=== PATIENT | female | born 1995 | race Caucasian/White ===

== ENCOUNTER 2018-07-20 16:32 | Emergency (ER) | payer BC ==
[2018-07-20 17:13] VITALS: BP 137/79
--- NOTE | 2018-07-20 17:24 | UC ---
UC General HPI - HPI Summary HPI Summary: about 1.5 hours ago, pt fell and injured her L hand/wrist area. +swell. - History of Current Complaint Chief Complaint: UCTrauma Stated Complaint: LEFT WRIST INJ Time Seen by Provider: 07/20/18 17:18 Hx Obtained From: Patient Hx Last Menstrual Period: 07/16/18 Onset/Duration: Sudden Onset Timing: Constant Pain Intensity: 8 Aggravating: movement Associated Signs & Symptoms: Positive: Edema. Negative: Fever, Weakness - Allergy/Home Medications Allergies/Adverse Reactions: Allergies Allergy/AdvReac Type Severity Reaction Status Date / Time amoxicillin Allergy Intermediate rash, GI Verified 07/20/18 17:14 upset esomeprazole [From Nexium] Allergy Intermediate Rash Verified 07/20/18 17:14 PMH/Surg Hx/FS Hx/Imm Hx Previously Healthy: Yes - Surgical History Surgical History: Yes Surgery Procedure, Year, and Place: arthroascopic hip surgery - Family History Known Family History: Negative: Diabetes - Social History Occupation: Student Alcohol Use: Weekly Substance Use Type: None Smoking Status (MU): Never Smoked Tobacco - Immunization History Most Recent Influenza Vaccination: not this season Vaccination Up to Date: Yes Review of Systems All Other Systems Reviewed And Are Negative: Yes Constitutional: Positive: Negative Skin: Positive: Negative Eyes: Positive: Negative ENT: Positive: Negative Respiratory: Positive: Negative Cardiovascular: Positive: Negative Gastrointestinal: Positive: Negative Genitourinary: Positive: Negative Motor: Positive: Negative Neurovascular: Positive: Negative Neurological: Negative: Weakness, Paresthesia, Numbness Psychological: Positive: Negative Physical Exam Triage Information Reviewed: Yes Appearance: Well-Appearing Vital Signs: Initial Vital Signs Temp 98.2 F 07/20/18 17:09 Pulse 82 07/20/18 17:09 Resp 18 07/20/18 17:09 BP 137/79 07/20/18 17:09 Pulse Ox 100 07/20/18 17:09 Vital Signs Reviewed: Yes Eyes: Positive: Conjunctiva Clear ENT: Positive: Normal ENT inspection Neck: Positive: Supple Respiratory: Positive: Lungs clear, Normal breath sounds Cardiovascular: Positive: RRR, No Murmur Abdomen Description: Positive: Nontender Bowel Sounds: Positive: Present Musculoskeletal: Positive: Other: - LUE: shoulder and elbow non tender. L wrist with mild swelling, dorasl and snuff box tenderness. L hand has superficiail abrasion, tenderness and swelling over thenar eminence. fingers have full s/v/m function. Neurological: Positive: Alert Psychological: Positive: Age Appropriate Behavior Skin Exam: Normal Diagnostics - Radiology No standard instances Radiology Interpretation Completed By: Radiologist - NO FX ON WRIST/HAND. SEE FULL REPORT. Course/Dx - Diagnoses Provider Diagnosis: Sprain of left wrist, Contusion of left hand, Abrasion of left hand, Occult fracture of scaphoid of left wrist Discharge - Sign-Out/Discharge Documenting (check all that apply): Patient Departure All imaging exams completed and their final reports reviewed: Yes - Discharge Plan Condition: Stable Disposition: HOME Patient Education Materials: Abrasion (ED), Wrist Sprain (ED) Referrals: Bishop Hernandez MD [Medical Doctor] - As Soon As Possible Additional Instructions: KEEP SPLIN ON AT ALL TIMES UNTIL CLEARED BY ORTHOPEDICS - Billing Disposition and Condition Condition: STABLE Disposition: Home
== END 2018-07-20 17:59 | disposition home or self-care (01) ==
LOC: UCCORT 16:32
DX: S62.002A Unspecified fracture of navicular [scaphoid] bone of left wrist, initial encounter for closed fracture (principal); S63.502A Unspecified sprain of left wrist, initial encounter; S60.222A Contusion of left hand, initial encounter; S60.512A Abrasion of left hand, initial encounter; Z88.8 Allergy status to other drugs, medicaments and biological substances; Z88.0 Allergy status to penicillin; W19.XXXA Unspecified fall, initial encounter; Y92.9 Unspecified place or not applicable
CPT/HCPCS: 99212; G0463

== ENCOUNTER 2018-10-12 07:19 | Emergency (ER) | payer BC ==
--- OUTSIDE RECORDS SUMMARY | 2018-10-12 07:26 | XMS REPORT | Continuity of Care Document ---
:1995 External Reference #:[id number] Author Name Jean Cerda MD Address [address] [facility] [place] [address] Care Team Providers Name Role Phone Cynthia Brown MD Care Team Information Associate Curator Unavailable Cynthia Brown MD Primary Care Physician Unavailable Payers Date Identification Numbers Payment Provider Subscriber Policy Number: [id number] Maryus Ena Menchaca PayID: [id number] [address] [address] [place] [address] Advance Directives Description No Information Available Problems Active Problems Provider Date Immunization Cynthia Brown MD Onset: 08/30/2016 Acute sinusitis Cynthia Brown MD Onset: 08/30/2016 Peptic reflux disease Cynthia Brown MD Onset: 08/30/2016 Family History Date Family Member(s) Observation Comments Father No Current Problems Mother No Current Problems Social History Type Date Description Comments Sex Unknown Lives With Roommate CHIQUIS WENDELL KINSEY BURNETT Tobacco Use Start: Unknown Never Smoked Cigarettes ETOH Use Negative For Drinks Alcoholic Beverages Occasionally Tobacco Use Start: Unknown Patient denies history of smoking Tobacco Use Start: Unknown Parent(S) Smoke dad Smoking Status Reviewed: 10/09/18 Parent(S) Smoke dad Allergies, Adverse Reactions, Alerts Active Allergies Reaction Severity Comments Date Nexium Rash Mild 09/20/2016 Amoxicillin Nausea 10/09/2018 Inactive Allergies NKDA 08/30/2016 Medications Active Medications SIG Qnty Indications Ordering Provider Date Macrobid 1 cap by mouth 10caps R30.0 Jean Cerda MD 10/09/2018 100mg Capsules twice a day Apri 1 by mouth Unknown 0.15-30mg-mcg every day Tablets History Medications Amoxicillin 1 by mouth 20tabs J01.90 Cynthia Brown, 08/30/2016 - 875mg twice a day 09/20/2016 Tablets Immunizations CPT Code Status Date Vaccine Lot # [id number] Given 07/04/2017 Influenza Virus Vaccine, Quadrivalent, Slit Virus, [id number] Im Use 73296 Given 02/28/2017 Gardasil [id number] 77319 Given 08/30/2016 Gardasil [id number] 02194 Given 10/01/2014 Meningococcal Conjugate Vaccine Serogroups For Intramuscular Use 40486 Given 03/13/2008 Tdap injection 98179 Given 09/13/2001 Poliovirus Vaccine Subcutaneous Or Intramuscular 51521 Given 09/13/2001 MMR Vaccine, Live, For Subcutaneous Use 20628 Given 09/13/2001 DTaP Vaccine Younger Than 7 76620 Given 01/12/1998 Poliovirus Vaccine Subcutaneous Or Intramuscular 55359 Given 01/12/1998 DTaP Vaccine Younger Than 7 23136 Given 10/13/1997 MMR Vaccine, Live, For Subcutaneous Use 62100 Given 10/13/1997 Hib PRP-T Conjugate 4 Dose Schedule 46360 Given 07/21/1997 Varicella (Chicken Pox) Vaccine 64886 Given 04/21/1997 Hepatitis B Vaccine Pediatric/Adolescent 20580 Given 01/20/1997 DTaP Vaccine Younger Than 7 16863 Given 01/20/1997 Hib PRP-T Conjugate 4 Dose Schedule 08390 Given 1996 Poliovirus Vaccine Subcutaneous Or Intramuscular 44493 Given 1996 DTaP Vaccine Younger Than 7 81151 Given 1996 Hib PRP-T Conjugate 4 Dose Schedule 98456 Given 1996 Poliovirus Vaccine Subcutaneous Or Intramuscular 98445 Given 1996 DTaP Vaccine Younger Than 7 50577 Given 1996 Hib PRP-T Conjugate 4 Dose Schedule 68204 Given 1996 Hepatitis B Vaccine Pediatric/Adolescent 41948 Given 1996 Hepatitis B Vaccine Pediatric/Adolescent Vital Signs Date Vital Result Comment 10/09/2018 10:41am BP Systolic 106 mmHg BP Diastolic 72 mmHg Body Temperature 97.9 F Heart Rate 70 /min Respiratory Rate 18 /min Height 65 inches 5'5" Weight 169.00 lb BMI (Body Mass Index) 28.1 kg/m2 BSA (Body Surface Area) 1.84 m2 [place] body weight in kilograms 57 kg O2 % BldC Oximetry 99 % Ra 09/20/2016 1:35pm BP Systolic Sitting Right Arm 123 mmHg BP Diastolic Sitting Right Arm 78 mmHg Body Temperature 97.8 F Heart Rate 73 /min Height 65 inches 5'5" Weight 151.06 lb BMI (Body Mass Index) 25.1 kg/m2 BSA (Body Surface Area) 1.76 m2 O2 % BldC Oximetry 100 % 08/30/2016 10:58am BP Systolic Sitting Left Arm 130 mmHg BP Diastolic Sitting Left Arm 76 mmHg Body Temperature 98.0 F Heart Rate 76 /min Respiratory Rate 12 /min Height 65 inches 5'5" Weight 156.00 lb BMI (Body Mass Index) 26.0 kg/m2 BSA (Body Surface Area) 1.78 m2 [place] body weight in kilograms 57 kg Last Menstrual Period [id number] Results Test Date Facility Test Result H/L Range Note Urine Dipstick 10/09/2018 [facility] Color yellow Yellow Ua Clarity clear Clear Ua Leuko 2+ High Negative Ua Nitrite - Negative Ua Urobilinogen 0.2 0.2 - 1.0 E.U./dL Ua Protein 1+ High Negative Ua PH 6.0 Low 6.5-7.5 Ua Blood 2+ High Negative Ua Specific Bazine 1.030 1.010-1.030 Ua Ketones - Negative Ua Bilirubin - Negative Ua Glucose - Negative Aot Request 10/05/2018 [facility] Aot Request Test(s) added 1, 2 [address] [place] [address] [phone] Tests to be added: Serum hcg CBC W/Automated Diff 10/05/2018 [facility] White Blood 8.0 K/uL N 3.1-10.[address] [place] [address] [phone] Red Blood Count 4.60 M/uL N 3.90-5.40 Hemoglobin 12.9 gm/dL N 11.6-15.8 Hematocrit 38.4 % N 36.0-46.1 Mean Cell Volume 83.5 fl N 80.9-99.0 Mean Corpuscular HGB 28.0 pg N 25.9-32.7 Mean Corpuscular HGB Conc 33.6 g/dL N 30.8-34.3 Platelet Count 249 K/uL N 155-360 Red Cell Distri Width SD 41.5 fl N 36-47 Red Cell Distri Width %CV 13.7 % N 11.7-14.4 Mean Platelet Volume 10.5 fl N 8.9-12.4 Neut% 80.7 % High 40.4-72.8 Lymph % 10.7 % Low 20.0-42.0 Lyon % 6.5 % N 4.3-13.2 Eo% 1.5 % N 0.0-6.6 Bas% 0.3 % N 0.0-1.1 Immature Grans 0.3 % N 0.0-5.0 NRBC % 0.0 /100WBC < 10/ 100 WBC Neut# 6.42 K/uL N 1.8-7.0 Lymph # 0.85 K/uL Low 1.0-4.0 Lyon # 0.52 K/uL N 0.3-0.9 Eos # 0.12 K/uL N 0.0-0.5 Baso # 0.02 K/uL N 0.0-0.1 Immature Grans Absolute 0.02 K/uL NRBC # 0.00 K/uL Neutrophils/leuk 09/25/2016 N2N/CCD Import Neutrophils/leuk 68.7 High 28.0-68.0 NFr Bld Auto NFr Bld Auto Neutrophils # Bld 09/25/2016 N2N/CCD Import Neutrophils # Bld 7.53 High 1.8-7.0 Auto Auto Monocytes/leuk NFr 09/25/2016 N2N/CCD Import Monocytes/leuk NFr 10.4 4.3 -13.2 Bld Auto Bld Auto Monocytes # Bld 09/25/2016 N2N/CCD Import Monocytes # Bld 1.14 High 0.3- 0.9 Auto Auto MCV RBC Auto 09/25/2016 N2N/CCD Import MCV RBC Auto 81.4 80.9-99.0 MCHC RBC Auto-mCnc 09/25/2016 N2N/CCD Import MCHC RBC Auto-mCnc 33.1 30.8-34.3 MCH RBC Qn Auto 09/25/2016 N2N/CCD Import MCH RBC Qn Auto 26.9 25.9- 32.7 Lymphocytes/leuk 09/25/2016 N2N/CCD Import Lymphocytes/leuk 18.1 Low 20.0 -42.0 NFr Bld Auto NFr Bld Auto Lymphocytes # Bld 09/25/2016 N2N/CCD Import Lymphocytes # Bld 1.99 1.0- 4.0 Auto Auto Hgb Bld-mCnc 09/25/2016 N2N/CCD Import Hgb Bld-mCnc 13.0 11.6-15.8 PMV Bld Auto 09/25/2016 N2N/CCD Import PMV Bld Auto 10.9 8.9-12.4 Platelet # Bld Auto 09/25/2016 N2N/CCD Import Platelet # Bld 264 150- 400 Auto Potassium 09/25/2016 N2N/CCD Import Potassium 3.3 Low 3.5-5.1 SerPl-sCnc SerPl-sCnc Prot SerPl-mCnc 09/25/2016 N2N/CCD Import Prot SerPl-mCnc 7.8 6.4-8.2 RBC # Bld Auto 09/25/2016 N2N/CCD Import RBC # Bld Auto 4.83 3.90-5.40 RDW RBC Auto 09/25/2016 N2N/CCD Import RDW RBC Auto 41.5 3-47 RDW RBC Auto-Rto 09/25/2016 N2N/CCD Import RDW RBC Auto-Rto 14.2 11.7- 14.4 Sodium SerPl-sCnc 09/25/2016 N2N/CCD Import Sodium SerPl-sCnc 140 136- 145 Unloinc 09/25/2016 N2N/CCD Import Unloinc See Note 3 WBC # Bld Auto 09/25/2016 N2N/CCD Import WBC # Bld Auto 11.0 High 3.1- 10.7 Pertussis PCR 09/25/2016 [facility] Bordetella Negative Negative [address] Pertussis Dna [place], [place] [id number] [phone] Bordetella parapertussis Dna Negative Negative 5 Comprehensive Metabolic 09/25/2016 [facility] Glucose 96 mg/dL N 74-[address] [place] [address] [phone] BUN 6 mg/dL Low 7-18 Creatinine 0.9 mg/dL N 0.6-1.3 Glom Filtration Rate, Estimate >60 mL/min >60 If >60 mL/min >60 6 BUN/Creat 6.6 ratio Sodium 140 mmol/L N 136-145 Potassium 3.3 mmol/L Low 3.5-5.1 Chloride 106 mmol/L N 98-107 Carbon Dioxide 23 mmol/L N 21-32 Anion Gap 11 mEq/L N 8-16 Calcium 9.0 mg/dL N 8.5-10.1 Total Protein 7.8 g/dL N 6.4-8.2 Albumin 3.8 g/dL N 3.4-5.0 Globulin 4.0 g/dL N 1.9-4.3 Alb/Glob 1.0 ratio Bilirubin,Total 0.8 mg/dL N 0.2-1.0 Sgot/Ast 16 U/L N 15-37 SGPT/Alt 22 U/L N 12-78 Alkaline Phosphatase 61 U/L N 45-117 Laboratory 09/25/2016 [facility] HCG,Serum NEGATIVE (Negative) 7 test finding [address] (Qualitative) [place] [address] [phone] CBS 09/25/2016 [facility] White Blood 11.0 K/uL High 3.1-10.7 W/Automated [address] [place] [address] [phone] Red Blood Count 4.83 M/uL N 3.90-5.40 Hemoglobin 13.0 gm/dL N 11.6-15.8 Hematocrit 39.3 % N 36.0-46.1 Mean Cell Volume 81.4 fl N 80.9-99.0 Mean Corpuscular HGB 26.9 pg N 25.9-32.7 Mean Corpuscular HGB Conc 33.1 g/dL N 30.8-34.3 Platelet Count 264 K/uL N 150-400 Red Cell Distri Width SD 41.5 fl N 3-47 Red Cell Distri Width %CV 14.2 % N 11.7-14.4 Mean Platelet Volume 10.9 fL N 8.9-12.4 Neut% 68.7 % High 28.0-68.0 Lymph % 18.1 % Low 20.0-42.0 Lyon % 10.4 % N 4.3-13.2 Eo% 2.6 % N 0.0-6.6 Bas% 0.2 % N 0.0-1.1 Neut# 7.53 K/uL High 1.8-7.0 Lymph # 1.99 K/uL N 1.0-4.0 Lyon # 1.14 K/uL High 0.3-0.9 Eos # 0.29 K/uL N 0.0-0.5 Baso # 0.02 K/uL N 0.0-0.1 Slide Review 09/25/2016 [facility] Slide Review (SEE NOTE) [address] [place] [address] [phone] Alp SerPl-cCnc 09/25/2016 N2N/CCD Import Alp SerPl-cCnc 61 45-117 Alt SerPl-cCnc 09/25/2016 N2N/CCD Import Alt SerPl-cCnc 22 12-78 Ast SerPl-cCnc 09/25/2016 N2N/CCD Import Ast SerPl-cCnc 16 15-37 Albumin 09/25/2016 N2N/CCD Import Albumin 3.8 3.4-5. SerPl-mCnc SerPl-mCnc 0 Albumin/Glob 09/25/2016 N2N/CCD Import Albumin/Glob 1.0 SerPl SerPl Anion Gap 09/25/2016 N2N/CCD Import Anion Gap 11 8-16 SerPl-sCnc SerPl-sCnc BUN SerPl-mCnc 09/25/2016 N2N/CCD Import BUN SerPl-mCnc 6 Low 7-18 BUN/Creat SerPl 09/25/2016 N2N/CCD Import BUN/Creat SerPl 6.6 Basophils # Bld 09/25/2016 N2N/CCD Import Basophils # Bld 0.02 0.0-0. Auto Auto 1 Basophils/leuk 09/25/2016 N2N/CCD Import Basophils/leuk 0.2 0.0-1. NFr Bld Auto NFr Bld Auto 1 Bilirub 09/25/2016 N2N/CCD Import Bilirub 0.8 0.2-1. SerPl-mCnc SerPl-mCnc 0 Co2 SerPl-sCnc 09/25/2016 N2N/CCD Import Co2 SerPl-sCnc 23 21-32 Calcium 09/25/2016 N2N/CCD Import Calcium 9.0 8.5-10 SerPl-mCnc SerPl-mCnc .1 Chloride 09/25/2016 N2N/CCD Import Chloride 106 98-107 SerPl-sCnc SerPl-sCnc Creat SerPl-mCnc 09/25/2016 N2N/CCD Import Creat SerPl-mCnc 0.9 0.6-1. 3 Eosinophil # Bld 09/25/2016 N2N/CCD Import Eosinophil # Bld 0.29 0.0-0. Auto Auto 5 Eosinophil/leuk 09/25/2016 N2N/CCD Import Eosinophil/leuk 2.6 0.0-6. NFr Bld Auto NFr Bld Auto 6 Globulin Ser 09/25/2016 N2N/CCD Import Globulin Ser 4.0 1.9-4. Calc-mCnc Calc-mCnc 3 Glucose 09/25/2016 N2N/CCD Import Glucose 96 74-106 [mass/volume] in [mass/volume] in serum or plasma serum or plasma Hct VFr Bld Auto 09/25/2016 N2N/CCD Import Hct VFr Bld Auto 39.3 36.0-4 6.1 1 VOMITING W/BLOOD, BLOOD IN STOOL 2 Tests: Serum hcg Instructions: 3 Instrument flagged sample for slide review. Less than 10% Bands seen, no other immature WBC's seen. RBC morphology essentially normal. Platelet estimate= Normal 4 COUGH,MIGRAINE,VOMITING 5 This test was developed and its performance characteristics determined by [employer]. It has not been cleared or approved by the U.S. Food and Drug Administration. The FDA has determined that such clearance or approval is not necessary. This test is used for clinical purposes. It should not be regarded as investigational or research. Performed at: [address] [id number] [employer] Hoisting: Ender Sepulveda MD, Phone: [phone] 6 Note: Persistent reduction for 3 months or more in an eGFR <60 mL/min/1.73 m2 defines CKD. Patients with eGFR values >/=60 mL/min/1.73 m2 may also have CKD if evidence of persistent proteinuria is present. The original MDRD equation for estimated GFR is not valid for patients less than 18 years of age. Additional information may be found at www.[employer].org. 7 Method: Quidel QuickVue One-Step Immunoassay 8 Instrument flagged sample for slide review. Less than 10% Bands seen, no other immature WBC's seen. RBC morphology essentially normal. Platelet estimate=NORMAL Procedures Description No Information Available Encounters Type Date Location Provider Dx Diagnosis Office Visit 10/09/2018 10:45a Family Medicine Jean Hernandez MD R30.[address] R35.0 Frequency of micturition Office Visit 09/20/2016 1:30p Family Medicine Dominique, R05 Cough Vincent Aburto, [employer]C Office Visit 08/30/2016 10:45a Family Medicine Cynthia Brown, J01.90 Acute sinusitis, Vincent ARIAS MD unspecified K21.0 Gastro-esophageal reflux disease with esophagitis Z23 Encounter for immunization Plan of Treatment 10/09/2018 - Jean Cerda, MDR30.0 DysuriaNew Medication:Macrobid 100 mg - 1 cap by mouth twice a dayNew Labs:Urine Culture, Ordered: 10/09/18R35.0 Frequency of micturitionNew Labs:Ua RFX Micro & Culture II, Ordered: 10/09/18
[2018-10-12 07:33] VITALS: BP 132/78
--- NOTE | 2018-10-12 07:56 | UC ---
Throat Pain/Nasal Michele HPI - HPI Summary HPI Summary: Per account manager employee benefits: "Sinus congestion with runny nose 10/05/18. Sore throat started 10/09/18. Worse on right side and hurts with swallowing. Post nasal drip." -she went to ER 1 wk ago w/ vomiting and dx'd w/ UTI, treated w/ macrobid. the systemic symptoms are improved as is dysuria. she had not vomited all week until this morning. she vomited once but no longer nauseated. appetite is not great. no fever, no rash. -she graduates this month from [place]. she is from [place]. she leaves October 26 to move to [place] to start phd program in nuclear microbiology. -she does have a PCP here that she can FU with this week -swelling glands have improved by about 15%. -no rash. no fever + pain w/ swallowing. no change in voice -no swelling in uvula or tongue. no SOB. -of note, she had lymmphadenopathy/lymphadenitis a few montsh ago starting from left nipple. - History of Current Complaint Chief Complaint: UCGeneralIllness Stated Complaint: THROAT COMPLAINT Time Seen by Provider: 10/12/18 07:38 Hx Last Menstrual Period: 10/08/18 Pain Intensity: 2 - Allergies/Home Medications Allergies/Adverse Reactions: Allergies Allergy/AdvReac Type Severity Reaction Status Date / Time amoxicillin Allergy Intermediate rash, GI Verified 10/12/18 07:29 upset esomeprazole [From Nexium] Allergy Intermediate Rash Verified 10/12/18 07:29 Home Medications: Home Medications Desogestrel-Ethinyl Estradiol [Enskyce 28 Tablet] 1 each PO DAILY 10/12/18 [ History Confirmed 10/12/18] Nitrofurantoin Monohyd/M-Cryst [Macrobid 100 mg Capsule] 100 mg PO BID 10/12/18 [History Confirmed 10/12/18] PMH/Surg Hx/FS Hx/Imm Hx Previously Healthy: Yes - Surgical History Surgical History: Yes Surgery Procedure, Year, and Place: arthroascopic hip surgery - Family History Known Family History: Negative: Diabetes - Social History Alcohol Use: Occasionally Substance Use Type: None Smoking Status (MU): Never Smoked Tobacco - Immunization History Most Recent Influenza Vaccination: not this season Vaccination Up to Date: Yes Review of Systems All Other Systems Reviewed And Are Negative: Yes Constitutional: Positive: Fatigue. Negative: Fever, Chills Skin: Negative: Rash Eyes: Positive: Negative ENT: Positive: Sore Throat - minimal, Other - b/l neck swelling, right > left. Negative: Ear Ache, Nasal Discharge Respiratory: Positive: Negative. Negative: Shortness Of Breath, Cough Cardiovascular: Positive: Negative. Negative: Palpitations, Chest Pain Gastrointestinal: Positive: Negative, Vomiting. Negative: Abdominal Pain Genitourinary: Positive: Negative Motor: Positive: Negative Neurovascular: Positive: Negative Musculoskeletal: Positive: Negative Neurological: Positive: Negative Psychological: Positive: Negative Is Patient Immunocompromised?: No Physical Exam Triage Information Reviewed: Yes Appearance: Well-Appearing, No Pain Distress, Well-Nourished - very pleasant, good historian Vital Signs: Initial Vital Signs Temp 97.6 F 10/12/18 07:30 Pulse 86 10/12/18 07:30 Resp 15 10/12/18 07:30 BP 132/78 10/12/18 07:30 Pulse Ox 100 10/12/18 07:30 Vital Signs Reviewed: Yes Eye Exam: Normal ENT Exam: Normal ENT: Positive: Pharyngeal erythema - mild. no swelling of tongue, lips or uvula. , TMs normal, Uvula midline. Negative: Tonsillar swelling, Tonsillar exudate, Hoarse voice Neck: Positive: Supple, Tenderness @ - b/l anterior cerival LNs, right > left. generalized mild -mold swelling in this area, visble. no discrete palpabale LNs felt.. Negative: Nuchal Rigidity Respiratory Exam: Normal Respiratory: Positive: Chest non-tender, Lungs clear, Normal breath sounds, No respiratory distress, No accessory muscle use. Negative: Crackles, Rhonchi, Stridor, Wheezing Cardiovascular Exam: Normal Cardiovascular: Positive: RRR Abdominal Exam: Normal Abdomen Description: Positive: Nontender, Soft. Negative: CVA Tenderness (R), CVA Tenderness (L) Bowel Sounds: Positive: Present Musculoskeletal Exam: Normal Neurological Exam: Normal Psychological Exam: Normal Skin: Negative: Rashes Throat Pain/Nasal Course/Dx - Differential Dx/Diagnosis Differential Diagnosis/HQI/PQRI: Peritonsillar Abscess, Tonsillitis, URI, Other - neck soft tissue swelling, goiter, lymphadenopathy, mass Provider Diagnosis: Localized swelling, mass and lump, neck Discharge - Sign-Out/Discharge Documenting (check all that apply): Patient Departure All imaging exams completed and their final reports reviewed: No Studies - Discharge Plan Condition: Stable Disposition: HOME Patient Education Materials: Lymphadenopathy (ED) Referrals: Cynthia Brown MD [Primary Care Provider] - 5 Days Additional Instructions: Please make sure to follow up with your PCP this week for the swelling in your neck. I recommend imaging of the soft tissues of your neck with CT scan, which unfortunately we do not have available today at our facility. This is important in light of the recent lyph node inflammation you had of your left breast. -Please call to get records of [facility] blood work we are doing today. We are also checking thyroid levels b/c fatigue and to rule out a thyroid goiter. CMP, cbc, LDH, mono, thyroid function. -You should go to the ER if your symptoms worsen. -Make sure to establish with a physician in [place] as soon as you get there. -Best of luck in your future! - Billing Disposition and Condition Condition: STABLE Disposition: Home
[2018-10-12 14:34] LABS: ABS Eosinophils 0.3 10^3/ul (0-0.6); ABS Lymphocytes 1.6 10^3/ul (1.0-4.8); ABS Monocytes 0.6 10^3/ul (0-0.8); ABS Neutrophils 5.6 10^3/ul (1.5-7.7); Eosinophil % 3.1 %; Hematocrit 41 % (35-47); Hemoglobin 13.6 g/dL (12.0-16.0); Lymphocyte % 19.6 %; Mean Corpuscular HGB Conc 33 g/dL (31-36); Mean Corpuscular Hemoglobin 27 pg (27-31); Mean Corpuscular Volume 83 fL (80-97); Mean Platelet Volume 9.2 fL (7.4-10.4); Platelet Count 270 10^3/uL (150-450); Red Blood Count 4.98 10^6 /uL (3.70-4.87); Red Cell Distribution Width 13 % (10.5-15); White Blood Count 8.1 10^3/uL (3.5-10.8)
[2018-10-12 14:59] LABS: TSH (Thyroid Stimulating Horm) 0.66 mcIU/mL (0.34-5.60)
[2018-10-12 15:01] LABS: Free T4 0.89 ng/dL (0.61-1.12)
[2018-10-12 15:03] LABS: Albumin 4.3 g/dL (3.2-5.2); Albumin/Globulin Ratio 1.5 (1-3); BUN/Creatinine Ratio 11.4 (8-20); Calcium 9.9 mg/dL (8.6-10.3); EGFR African American 126.6 (>60); EGFR Non-African American 104.6 (>60); Globulin 2.9 g/dL (2-4); Potassium 4.2 mmol/L (3.5-5.0); Total Bilirubin 0.2 mg/dL (0.2-1.0); Total Protein 7.2 g/dL (6.4-8.9)
--- NOTE | 2018-10-13 08:17 | UC ---
- Progress Note Progress Note: Reviewed blood work as available from 10/12/18. Non-urgent/emergent. Pt will need to f/u with her PCP as advised on AVS instructions. Course/Dx - Diagnoses Provider Diagnoses: Localized swelling, mass and lump, neck Discharge - Sign-Out/Discharge Documenting (check all that apply): Post-Discharge Follow Up All imaging exams completed and their final reports reviewed: No Studies - Discharge Plan Condition: Stable Disposition: HOME Patient Education Materials: Lymphadenopathy (ED) Referrals: Cynthia Brown MD [Primary Care Provider] - 5 Days Additional Instructions: Please make sure to follow up with your PCP this week for the swelling in your neck. I recommend imaging of the soft tissues of your neck with CT scan, which unfortunately we do not have available today at our facility. This is important in light of the recent lyph node inflammation you had of your left breast. -Please call to get records of [facility] blood work we are doing today. We are also checking thyroid levels b/c fatigue and to rule out a thyroid goiter. CMP, cbc, LDH, mono, thyroid function. -You should go to the ER if your symptoms worsen. -Make sure to establish with a physician in [place] as soon as you get there. -Best of luck in your future! - Billing Disposition and Condition Condition: STABLE Disposition: Home
[2018-10-15 15:43] LABS: EBV Capsid Ag IgG Ab Negative (Negative); EBV Capsid Ag IgM Ab Negative (Negative); Epstein-Barr Nuclear Antigen Negative (Negative)
== END 2018-10-12 08:40 | disposition home or self-care (01) ==
LOC: UCCORT 07:19
DX: R22.1 Localized swelling, mass and lump, neck (principal); J02.9 Acute pharyngitis, unspecified; R53.83 Other fatigue; R09.81 Nasal congestion; Z88.0 Allergy status to penicillin; Z88.8 Allergy status to other drugs, medicaments and biological substances
CPT/HCPCS: 36415; 80053; 83615; 84439; 84443; 85025; 86308; 86664; 86665; 86703; 99211; G0463